=== PATIENT | female | born 1950 | race Caucasian/White ===

== ENCOUNTER 2017-04-17 06:05 | Day surgery (SDC) | payer OTHER ==
[2017-04-17] MEDS ORDERED: Propofol 10 mg/ml Inj (20 ML) ONE (08:07)
[2017-04-17 09:05] VITALS: TEMP 97.3
[2017-04-17 10:11] VITALS: BP 115/64; PULSE 68; RESP 17; O2SAT 98
== END 2017-04-17 10:35 | disposition home or self-care (01) ==
LOC: C.ENDO 06:05
PROVIDERS: ATTEND Internal Medicine Gastroenterology
DX: Z12.11 Encounter for screening for malignant neoplasm of colon (principal); D12.4 Benign neoplasm of descending colon; D12.3 Benign neoplasm of transverse colon; K64.1 Second degree hemorrhoids
CPT/HCPCS: 45380; 88305; J2704; J3010

== ENCOUNTER 2018-03-09 15:20 | Emergency (ER) | payer OTHER ==
[2018-03-09 15:29] VITALS: BP 108/72; PULSE 86; RESP 18; TEMP 98.4; O2SAT 98
--- NOTE | 2018-03-09 16:44 | C.PDOC ---
History Of Present Illness 67 year old female patient presents to the ER with c/o swelling and pain on right ankle. Patient states she twisted and fell this morning. Patient denies numbness and weakness. Time Seen by Provider: 03/09/18 16:09 Chief Complaint (Nursing): Lower Extremity Problem/Injury History Per: Patient History/Exam Limitations: no limitations Current Symptoms Are (Timing): Still Present Past Medical History Reviewed: Historical Data, Nursing Documentation, Vital Signs Vital Signs: Last Vital Signs Temp 98.4 F 03/09/18 15:26 Pulse 86 03/09/18 15:26 Resp 18 03/09/18 15:26 BP 108/72 03/09/18 15:26 Pulse Ox 98 03/09/18 20:36 - Medical History PMH: Anxiety, Depression, Hypothyroidism (PT DENIES, H&P STATES YES), Osteoporosis Surgical History: Appendectomy Family History: States: No Known Family Hx - Social History Hx Tobacco Use: No Hx Alcohol Use: Yes Hx Substance Use: No - Immunization History Hx Tetanus Toxoid Vaccination: Yes Hx Influenza Vaccination: No Hx Pneumococcal Vaccination: No Review Of Systems Except As Marked, All Systems Reviewed And Found Negative. Musculoskeletal: Positive for: Leg Pain (twisted and swollen ankle ) Neurological: Negative for: Weakness, Numbness Physical Exam - Physical Exam Appears: Well, Non-toxic, No Acute Distress Skin: Normal Color, Warm, Dry Head: Atraumatic, Normacephalic Cardiovascular: Rhythm Regular Respiratory: Normal Breath Sounds Extremity: Normal ROM (x4), Tenderness (right lateral malleolus ), No Calf Tenderness, Capillary Refill (<2 sec), No Deformity, Swelling (swollen right lateral malleolus ), No Other (erythema; open wound ) Pulses: Left Dorsalis Pedis: Normal, Right Dorsalis Pedis: Normal Neurological/Psych: Oriented x3, Normal Speech, Normal Motor, Normal Sensation, Normal Reflexes Gait: Steady ED Course And Treatment O2 Sat by Pulse Oximetry: 98 (RA) Pulse Ox Interpretation: Normal - Other Rad Ankle XR X-Ray: Read By Radiologist Interpretation: Accession No. : [id number]. Patient Name / ID : BELGICA JANE / [id number]. Exam Date : 03/09/2018 16:15:31 ( Approved ). Study Comment : Sex / Age : F / 67Y. Creator : Vivian Arredondo. Dictator : Darin Constantino MD. Biomaterials Engineer : Group Exercise Class Instructor : Darin Constantino MD. Approver2 : Report Date : 03/09/2018 16:31:46. My Comment : . Date of service: 03/09/2018. PROCEDURE: Right Ankle Radiographs. HISTORY: twisted and fell. COMPARISON: None. FINDINGS: BONES: Oblique, acute fracture distal fibula. Madan remarked. JOINTS: Normal. No osteoarthritis. Ankle mortise maintained. Talar dome intact. SOFT TISSUES: Soft tissue swelling attests to the acuity of the fracture. OTHER FINDINGS: None. IMPRESSION: Acute oblique fracture above the ankle mortise. Major fracture fragments are anatomically aligned. Progress Note: Impression: swollen and painful ankle. Plans: -- ibuprofen. - - XR right ankle. Ankle: Splinted with short leg and U- splint by CP and checked by me. Reassess: Patient is resting comfortably. Tolerating PO. Patient instructed to keep area dry and instructed on how to use cructhes. Patient instruced to f/u with PMD and Orthopedist. Disposition - Disposition Referrals: Hadley Sotelo MD [Staff Provider] - Disposition: HOME/ ROUTINE Disposition Time: 16:44 Condition: STABLE Additional Instructions: Follow up with Orthopedist within 1-2 days. Return to ED if feel worse. Prescriptions: traMADol/Acetaminophen [Ultracet 325 MG-37.5 MG] 1 tab PO Q6 PRN #30 tab PRN Reason: Pain Instructions: Ankle Fracture (DC) Forms: [employer] (Maori) Print Language: MARSHALLESE - Clinical Impression Clinical Impression: Fracture of lateral malleolus - PA / TRAINING FACILITATOR / Resident Statement / has reviewed & agrees with the documentation as recorded. - Scribe Statement The provider has reviewed the documentation as recorded by the Marco Antonio June Do All medical record entries made by the Scribe were at my direction and personally dictated by me. I have reviewed the chart and agree that the record accurately reflects my personal performance of the history, physical exam, medical decision making, and the department course for this patient. I have also personally directed, reviewed, and agree with the discharge instructions and disposition.
--- NOTE | 2018-03-09 17:47 | RAD ---
Date of service: 03/09/2018 PROCEDURE: Right Ankle Radiographs. HISTORY: twisted and fell COMPARISON: None FINDINGS: BONES: Oblique, acute fracture distal fibula. Madan remarked JOINTS: Normal. No osteoarthritis. Ankle mortise maintained. Talar dome intact SOFT TISSUES: Soft tissue swelling attests to the acuity of the fracture. OTHER FINDINGS: None. IMPRESSION: Acute oblique fracture above the ankle mortise. Major fracture fragments are anatomically aligned.
== END 2018-03-09 18:10 | disposition home or self-care (01) ==
LOC: C.ER 15:20
DX: S82.61XA Displaced fracture of lateral malleolus of right fibula, initial encounter for closed fracture (principal); W18.30XA Fall on same level, unspecified, initial encounter; M81.0 Age-related osteoporosis without current pathological fracture